=== PATIENT | female | born 1965 | race Caucasian/White ===

== ENCOUNTER 2017-08-01 11:51 | Emergency (ER) | payer OTHER ==
[~2017-08-01] VITALS: Ht 167.6 cm; Wt 84.0 kg
[2017-08-01 11:54] VITALS: Ht 167.6 cm; Wt 84.0 kg
[2017-08-01] MEDS ORDERED: ASPIRIN 325 MG TAB PO STA (12:40)
--- NOTE | 2017-08-01 12:40 | ERD ---
ER Documentation Chief Complaint Date/Time DATE: 08/01/17 TIME: 12:33 Chief Complaint Complains of chest pain and dizziness x 2 days HPI 52-year-old female with history of diabetes mellitus type 2 and hypertension presents to the ED complaining of chest pain. The last 2 days she experienced intermittent episodes of vague, generalized, nonradiating chest pain accompanied by shortness of breath but no nausea, vomiting or diaphoresis. The symptoms are unprovoked and occurred generally while sitting down and last less than 10 seconds. Episodes occur approximately 4-5 times per day. No relieving or exacerbating factors. Also has noticed recently while walking around feels lightheaded which she describes as dizziness but denies visual changes, focal weakness or numbness. No leg pain or swelling. Denies abdominal pain or back pain. No URI symptoms body aches or cough. No fevers or chills. Also complaining of increasing generalized anxiety due to stress she is experiencing her children. She denies depression, hallucinations, suicidal homicidal ideations. Admits to similar issues previously. ROS All systems reviewed and are negative except as per history of present illness. Medications Home Meds Active Scripts Lorazepam* (Ativan*) 0.5 Mg Tablet, 0.5 MG PO BID Y for ANXIETY, #6 TAB Prov:KAYE DE LEON MD 08/01/17 Reported Medications Amlodipine Besylate* (Norvasc*) 5 Mg Tablet, 5 MG PO DAILY, TAB 08/01/17 Benazepril Hcl* (Benazepril Hcl*) 20 Mg Tablet, 20 MG PO DAILY, #30 TAB 08/01/17 Metformin Hcl* (Metformin Hcl*) 500 Mg Tablet, 500 MG PO WITH BREAKFAST, #30 TAB 08/01/17 Allergies Allergies: Coded Allergies: No Known Allergy (Unverified , 08/01/17) PMhx/Soc 52-year-old, history of diabetes and hypertension presents to the ED complaining of 2 day history of transitory episodes of unprovoked, generalized, nonradiating chest pain which he describes as chest History of Surgery: No Anesthesia Reaction: No Hx Neurological Disorder: No Hx Respiratory Disorders: No Hx Cardiac Disorders: Yes (Hypertension trying to) Hx Psychiatric Problems: No Hx Miscellaneous Medical Probl: Yes (HTN, DM) Hx Alcohol Use: No Hx Substance Use: No Hx Tobacco Use: No Smoking Status: Never smoker FmHx Father and grandfather both had coronary artery disease. No sudden cardiac . Multiple family members with diabetes. Physical Exam Vitals Vital Signs Date Time Temp Pulse Resp B/P Pulse Ox O2 Delivery O2 Flow Rate FiO2 08/01/17 15:01 98.7 86 20 124/86 98 Room Air 08/01/17 12:27 98.5 104 20 156/95 100 Room Air 08/01/17 11:54 98.5 106 20 179/98 96 Physical Exam Const: Alert, anxious but in no acute distress. Head: Atraumatic Eyes: Normal Conjunctiva ENT: Normal External Ears, Nose and Mouth. Neck: Full range of motion. Nontender. No JVD. Breath sounds are equal and Resp: Clear to auscultation bilaterally Cardio: Regular rate and rhythm, no murmurs. Reproducible left chest wall tenderness. No skin changes, bruising or rash. Obese. Abd: Soft, non tender, non distended. Normal bowel sounds Skin: No petechiae or rashes Back: No midline or flank tenderness Ext: No cyanosis, or edema. No calf swelling or tenderness. Pulses 4+ in all extremities. Neur: Awake and alert. No focal deficit observed. Psych: Patient appears anxious but not depressed. Result Diagram: 08/01/17 1220 08/01/17 1220 Results 24 hrs Laboratory Tests Test 08/01/17 12:20 White Blood Count 8.610^3/ul Red Blood Count 5.0810^6/ul Hemoglobin 14.3g/dl Hematocrit 43.8% Mean Corpuscular Volume 86.2fl Mean Corpuscular Hemoglobin 28.1pg Mean Corpuscular Hemoglobin Concent 32.6g/dl Red Cell Distribution Width 12.8% Platelet Count 93896^3/UL Mean Platelet Volume 11.5fl Neutrophils % 55.8% Lymphocytes % 31.3% Monocytes % 7.9% Eosinophils % 4.2% Basophils % 0.6% Nucleated Red Blood Cells % 0.0/100WBC Neutrophils # 4.810^3/ul Lymphocytes # 2.710^3/ul Monocytes # 0.710^3/ul Eosinophils # 0.410^3/ul Basophils # 0.110^3/ul Nucleated Red Blood Cells # 0.010^3/ul D-Dimer 435.06ng/ml D-Dimer Comment Sodium Level 145mmol/L Potassium Level 3.8mmol/L Chloride Level 104mmol/L Carbon Dioxide Level 29mmol/L Anion Gap 16 Blood Urea Nitrogen 12mg/dl Creatinine 0.67mg/dl Glucose Level 136mg/dl Calcium Level 9.8mg/dl Total Bilirubin 0.1mg/dl Direct Bilirubin 0.00mg/dl Indirect Bilirubin 0.1mg/dl Aspartate Amino Transf (AST/SGOT) 44IU/L Alanine Aminotransferase (ALT/SGPT) 44IU/L Alkaline Phosphatase 137IU/L Troponin I < 0.012ng/ml Total Protein 8.8g/dl Albumin 4.8g/dl Globulin 4.00g/dl Albumin/Globulin Ratio 1.20 Current Medications Medications (Trade) Dose Ordered Sig/Teresa Route PRN Reason Start Time Stop Time Status Last Admin Dose Admin Aspirin (Aspirin) 325 mg ONCE STAT PO 08/01/17 12:40 08/01/17 12:42 DC 08/01/17 12:50 Lorazepam (Ativan) 0.5 mg ONCE ONCE IV 08/01/17 13:00 08/01/17 13:01 DC 08/01/17 12:51 Ketorolac Tromethamine (Toradol) 15 mg ONCE STAT IV 08/01/17 14:17 08/01/17 14:18 DC 08/01/17 14:28 EKG: TIME: 11:57. Sinus tachycardia. Ventricular rate 101. Normal IL and QRS. No axis deviation. No ectopy. EP Interpretation: Sinus tachycardia Otherwise normal ECG. IMAGING: Cardiac silhouette is normal. The costophrenic angles are clear. No effusion or infiltrates. EP interpretation: No acute disease. Procedures/MDM DOCUMENTS REVIEWED: ED nursing notes, prior ED records from 2013. REEXAMINATION/REEVALUATION: Time: 14:00. Feels significantly better but still complaining of tenderness when she touches her left upper chest. Toradol 15 mg IV ordered. MEDICAL DECISION MAKIN-year-old female with history of diabetes mellitus type 2 and hypertension presents to the ED complaining of chest pain. Patient presents with atypical chest pain. EKG and troponin are unremarkable. No radiographic evidence of pneumonia or pneumothorax. Low risk for pulmonary embolism, no leg symptoms and d-dimer is negative. Heart score is less than 3. Patient is at low risk for an acute event or serious outcome. Exam and work up not consistent w/ ischemia, arrhythmia, PE or dissection. Systems consistent with anxiety reaction improved with Ativan. Chest wall tenderness likely secondary to costochondritis. No skin changes, rash or signs of cellulitis or shingles. Patient's blood pressure was elevated (>120/80) but appears stable without evidence of hypertension emergency or urgency. The patient was counseled about the risks of hypertension and urged to pursue outpatient monitoring and therapy within a week with their primary care physician. Stable for discharge with precautionary instructions and outpatient follow-up as counseled. Patient understands that outpatient follow-up is mandatory for further risk stratification. Counseled patient regarding diagnostic workup, diagnosis and need for followup. Understands to return to ED if symptoms recur, worsen or any other concerns. Departure Diagnosis: Primary Impression: Chest pain Chest pain type: unspecified Qualified Code: R07.9 - Chest pain, unspecified type Additional Impressions: Hypertension Hypertension type: essential hypertension Qualified Code: I10 - Essential hypertension Diabetes mellitus type 2 in obese Condition: Stable (Improved) Patient Instructions: Chest Pain, Uncertain Cause KAYE DE LEON MD Aug 01, 2017 12:40
[2017-08-01] MEDS ORDERED: LORAZEPAM 2 MG INJ IV ONE (13:00)
--- NOTE | 2017-08-01 13:21 | RADRPT ---
PROCEDURE: Chest x-ray CLINICAL INDICATION: Chest pain TECHNIQUE: Chest single view COMPARISON: None FINDINGS: The heart is normal in size. The pulmonary vessels are normal in caliber. The lungs are clear. Th e costophrenic angles are sharp. The visualized bony thorax is unremarkable. IMPRESSION: No acute cardiopulmonary disease. RPTAT: HH .Dangelo Jurado MD, Date Time Electronically viewed and signed by .Dangelo Jurado MD, MD on 08/01/2017 13:21 .W/
[2017-08-01] MEDS ORDERED: METF500T4 PO (13:41)
[2017-08-01] MEDS ORDERED: BENA20TA48 PO (13:41)
[2017-08-01] MEDS ORDERED: AMLO5TAB4 PO (13:41)
[2017-08-01 13:58] LABS: BASOPHIL # 0.1 10^3/ul (0.0-0.1); BASOPHILS % 0.6 % (0.0-2.0); EOSINOPHILS # 0.4 10^3/ul (0.0-0.5); EOSINOPHILS % 4.2 % (0.0-7.0); HEMATOCRIT 43.8 % (37.0-47.0); HEMOGLOBIN 14.3 g/dl (12.0-16.0); LYMPHOCYTES # 2.7 10^3/ul (0.8-2.9); LYMPHOCYTES % 31.3 % (15.0-51.0); MEAN CORPUSCULAR HEMOGLOBIN 28.1 pg (29.0-33.0); MEAN CORPUSCULAR HGB CONC 32.6 g/dl (32.0-37.0); MEAN CORPUSCULAR VOLUME 86.2 fl (82.0-101.0); MEAN PLATELET VOLUME 11.5 fl (7.4-10.4); MONOCYTE # 0.7 10^3/ul (0.3-0.9); MONOCYTES % 7.9 % (0.0-11.0); NEUTROPHIL # 4.8 10^3/ul (1.6-7.5); NEUTROPHILS % 55.8 % (39.0-77.0); PLATELET COUNT 308 10^3/UL (140-415); RED BLOOD COUNT 5.08 10^6/ul (4.20-5.40); RED CELL DISTRIBUTION WIDTH 12.8 % (11.5-14.5); WHITE BLOOD COUNT 8.6 10^3/ul (4.8-10.8)
[2017-08-01 14:04] LABS: ALANINE AMINOTRANSFERASE 44 IU/L (13-69); ALBUMIN 4.8 g/dl (3.3-4.9); ALKALINE PHOSPHATASE 137 IU/L (42-121); ANION GAP 16 (8-16); ASPARTATE AMINO TRANSFERASE 44 IU/L (15-46); BILIRUBIN,INDIRECT 0.1 mg/dl (0-1.1); BILIRUBIN,TOTAL 0.1 mg/dl (0.2-1.3); BLOOD UREA NITROGEN 12 mg/dl (7-20); CALCIUM 9.8 mg/dl (8.4-10.2); CARBON DIOXIDE 29 mmol/L (21-31); CHLORIDE 104 mmol/L (97-110); CREATININE 0.67 mg/dl (0.44-1.00); GLUCOSE 136 mg/dl (70-220); POTASSIUM 3.8 mmol/L (3.5-5.1); SODIUM 145 mmol/L (135-144); TOTAL PROTEIN 8.8 g/dl (6.1-8.1)
[2017-08-01 14:08] LABS: D-DIMER 435.06 ng/ml (<460)
[2017-08-01 14:16] LABS: TROPONIN-I < 0.012 ng/ml (0.00-0.12)
[2017-08-01] MEDS ORDERED: KETOROLAC 15 MG INJ IV STA (14:17)
[2017-08-01] MEDS ORDERED: LORA-441 PO (14:42)
[2017-08-01 15:01] VITALS: BP 124/86; PULSE 86; RESP 20; TEMP 98.7
== END 2017-08-01 15:00 | disposition home or self-care (01) ==
LOC: E/R 11:51
DX: R07.9 Chest pain, unspecified (principal); I10 Essential (primary) hypertension; E11.9 Type 2 diabetes mellitus without complications; Z79.84 Long term (current) use of oral hypoglycemic drugs
CPT/HCPCS: 36415; 71010; 80053; 84484; 85025; 85378; 96374; 96375; J1885; J2060; Z7502; Z7610